=== PATIENT | female | born 2000 | race Two or more races ===

== ENCOUNTER 2023-08-13 15:22 | Emergency (ER) | payer OTHER ==
[~2023-08-13] VITALS: Ht 167.6 cm; Wt 81.6 kg
== END 2023-08-13 19:44 | disposition home or self-care (01) ==
LOC: ER 15:22
DX: S50.01XA Contusion of right elbow, initial encounter (principal); S80.01XA Contusion of right knee, initial encounter; W05.2XXA Fall from non-moving motorized mobility scooter, initial encounter; Y93.89 Activity, other specified; Y92.89 Other specified places as the place of occurrence of the external cause; Y99.9 Unspecified external cause status
CPT/HCPCS: 73080; 73560; 90471; 90714; 96372; 99284; J1670; J1885